=== PATIENT | male | born 1980 | race African-American/Black ===

== ENCOUNTER 2020-09-06 19:47 | Inpatient (IN) | payer MEDICAID, OTHER ==
[~2020-09-06] VITALS: Ht 180.3 cm; Wt 90.9 kg
[2020-09-06 21:27] LABS: BASOPHILS % 0.3 % (0.0-2.0); EOSINOPHILS % 0.1 % (0.0-5.0); HEMATOCRIT. 34.6 % (42.0-52.0); HEMOGLOBIN. 10.9 g/dL (14.0-18.0); LYMPHOCYTES % 11.1 % (20.0-50.0); MEAN CORPUSCULAR HEMOGLOBIN 24.1 pg (28.0-32.0); MEAN CORPUSCULAR VOLUME 76.8 fL (80.0-94.0); MEAN PLATELET VOLUME 7.9 fl (7.4-10.4); MONOCYTES % 5.6 % (2.0-8.0); NEUTROPHILS % 82.9 % (40.0-76.0); PLATELET 331 x1000/uL (130-400); RED BLOOD CELL COUNT 4.51 mill/uL (4.7-6.1); RED CELL DISTRIBUTION WIDTH 15.3 % (11.6-14.6)
[2020-09-06 21:34] LABS: CHLORIDE 91 mEq/L (98-107)
[2020-09-06] MEDS ORDERED: CEFTRIAXONE 1 G PREMIX 50 ML IV ONE (21:45)
[2020-09-06] MEDS ORDERED: SODIUM CHLORIDE 0.9% 1,000 ML IV ONE (21:45)
[2020-09-06] MEDS ORDERED: SODIUM CHLORIDE 0.9% 500 ML IV ONE (22:45)
[2020-09-07] MEDS ORDERED: SODIUM CHLORIDE 0.45% 1,000 ML IV SCH (13:00)
[2020-09-07] MEDS ORDERED: CLONIDINE 0.1MG TABLET PO PRN (13:00)
[2020-09-07] MEDS ORDERED: ONDANSETRON HCL 4MG/2ML INJ IV PRN (13:00)
[2020-09-07] MEDS ORDERED: VANCOMYCIN 1500MG in DEXTROSE 5% WATER 250ML IV SCH (14:00)
[2020-09-07] MEDS ORDERED: IOHEXOL-350 100 ML BOTTLE ONE (15:31)
[2020-09-07 17:15] VITALS: BP 138/84
[2020-09-07] MEDS: ENOXAPARIN 40MG/0.4ML SYR SUBCUT SCH (17:45)
[2020-09-07] MEDS: PIPERACILLIN/TAZOBACTAM 3.375 G in DEXT 5% WATER 100 ML IV SCH ×2 (17:46→21:21)
[2020-09-07] MEDS: HYDROCODONE/ACETAMINOPHEN 5/325MG TABLET PO PRN (17:48)
[2020-09-07] MEDS ORDERED: SODIUM CHLORIDE 0.9% 1,000 ML IV SCH (18:45)
[2020-09-07] MEDS ORDERED: SODIUM CHLORIDE 10% FOR INH 15ML VIAL NEB INH NR (19:30)
[2020-09-07 20:00] VITALS: BP 122/93
[2020-09-07 22:02] LABS: BG BASE EXCESS -9.6 mmol/L (-2.0-2.0); BG CARBOXYHEMOGLOBIN 1.5 % (0.5-1.5); BG DEOXYHEMOGLOBIN 9.3 % (0.0-5.0); BG FRACTION INSPIRED OXYGEN 36; BG HCO3 ACT 13.7 mmol/L (22.0-26.0); BG METHEMOGLOBIN 0.4 % (0.0-1.5); BG OXYGEN SATURATION 90.5 % (92.0-98.5); BG OXYHEMOGLOBIN 88.8 % (94.0-97.0); BG PCO2 23.3 mmHg (35.0-45.0); BG PH 7.387 (7.350-7.450); BG SAMPLE SITE RIGHT RADIAL; BG TOTAL HEMOGLOBIN 11.4 g/dL (12.0-18.0); BG VENT MODE NASAL CANNULA
[2020-09-07] MEDS: VANCOMYCIN 1250MG in DEXTROSE 5% WATER 250ML IV SCH (23:53)
[2020-09-08] VITALS: BP 119/90
[2020-09-08 02:08] LABS: HEPATITIS B SURFACE ANTIGEN NEGATIVE
[2020-09-08] MEDS: PIPERACILLIN/TAZOBACTAM 3.375 G in DEXT 5% WATER 100 ML IV SCH ×4 (03:27→21:13)
[2020-09-08] MEDS: HYDROCODONE/ACETAMINOPHEN 5/325MG TABLET PO PRN (03:31)
[2020-09-08 03:38] LABS: HEPATITIS A AB IGM Equiv (NEGATIVE)
[2020-09-08 04:00] VITALS: BP 131/92
[2020-09-08] MEDS: VANCOMYCIN 1250MG in DEXTROSE 5% WATER 250ML IV SCH ×3 (05:04→22:50)
[2020-09-08 08:00] VITALS: BP 114/87
[2020-09-08] MEDS: ASPIRIN 81MG EC TABLET PO SCH (08:29)
[2020-09-08] MEDS: ENOXAPARIN 40MG/0.4ML SYR SUBCUT SCH (08:30)
[2020-09-08] MEDS: GUAIFENESIN 200MG/10ML SUGAR FREE UDC PO PRN ×3 (08:44→16:49)
[2020-09-08] MEDS: SODIUM BICARBONATE 150 MEQ in DEXTROSE 5% WATER 1,000 ML IV SCH (09:39)
[2020-09-08 09:48] LABS: BG BASE EXCESS -9.4 mmol/L (-2.0-2.0); BG CARBOXYHEMOGLOBIN 1.1 % (0.5-1.5); BG DEOXYHEMOGLOBIN 17.5 % (0.0-5.0); BG FRACTION INSPIRED OXYGEN 21; BG HCO3 ACT 14.2 mmol/L (22.0-26.0); BG METHEMOGLOBIN 0.4 % (0.0-1.5); BG OXYGEN SATURATION 82.2 % (92.0-98.5); BG PCO2 24.8 mmHg (35.0-45.0); BG PH 7.375 (7.350-7.450); BG PO2 48.9 mmHg (75.0-100.0); BG SAMPLE SITE RIGHT BRACHIAL; BG TOTAL HEMOGLOBIN 11.8 g/dL (12.0-18.0); BG VENT MODE ROOM AIR
[2020-09-08 10:48] LABS: CLARITY URINE CLEAR (CLEAR); COLOR URINE DARK YELLOW (YELLOW); KETONES URINE NEGATIVE (NEGATIVE); LEUKOCYTE ESTERASE URINE NEGATIVE (NEGATIVE); NITRITE URINE NEGATIVE (NEGATIVE); OCCULT BLOOD URINE TRACE (NEGATIVE); PROTEIN URINE 1+ (NEGATIVE); SPECIFIC GRAVITY URINE 1.043 (1.005-1.030)
[2020-09-08 11:05] LABS: *AMPHETAMINES SCREEN URINE NEGATIVE (NEGATIVE); *BARBITURATES SCREEN URINE NEGATIVE (NEGATIVE)
[2020-09-08 11:06] LABS: *BENZODIAZEPINES SCREEN URINE NEGATIVE (NEGATIVE); *COCAINE SCREEN URINE NEGATIVE (NEGATIVE); CANNABINOID URINE SCREEN NEGATIVE (NEGATIVE); METHADONE URINE SCREEN NEGATIVE (NEGATIVE); OPIATES URINE SCREEN PRESUMTIVE POSITIVE (NEGATIVE); PHENCYCLIDINE URINE SCREEN NEGATIVE (NEGATIVE)
[2020-09-08 12:00] VITALS: BP 111/90
[2020-09-08 12:33] LABS: BASOPHILS % 0.1 % (0.0-2.0); EOSINOPHILS % 0.3 % (0.0-5.0); HEMATOCRIT. 37.3 % (42.0-52.0); HEMOGLOBIN. 11.1 g/dL (14.0-18.0); MEAN CORPUSCULAR HEMOGLOBIN 23.9 pg (28.0-32.0); MEAN CORPUSCULAR VOLUME 80.5 fL (80.0-94.0); MEAN PLATELET VOLUME 8.2 fl (7.4-10.4); NEUTROPHILS % 86.6 % (40.0-76.0); PLATELET 287 x1000/uL (130-400); RED BLOOD CELL COUNT 4.64 mill/uL (4.7-6.1); RED CELL DISTRIBUTION WIDTH 16.5 % (11.6-14.6)
[2020-09-08 12:37] LABS: CHLORIDE 89 mEq/L (98-107)
[2020-09-08 12:38] LABS: INR 2.5; PROTHROMBIN TIME 25.2 sec (9.6-11.0)
[2020-09-08 12:44] LABS: LDL CHOLESTEROL 33 mg/dL (5-100)
[2020-09-08 12:46] LABS: HDL CHOLESTEROL 15 mg/dL (40-59)
[2020-09-08 16:00] VITALS: BP 132/84
[2020-09-08] MEDS: DEXAMETHASONE 10 MG/ML VIAL IV SCH (16:48)
[2020-09-08] MEDS: FUROSEMIDE 40MG/4ML VIAL IVP SCH (16:48)
[2020-09-08 20:34] VITALS: BP 115/81
[2020-09-09 00:21] VITALS: BP 127/93
[2020-09-09 04:00] VITALS: BP 156/101
[2020-09-09] MEDS: VANCOMYCIN 1250MG in DEXTROSE 5% WATER 250ML IV SCH (05:13)
[2020-09-09] MEDS: PIPERACILLIN/TAZOBACTAM 3.375 G in DEXT 5% WATER 100 ML IV SCH ×4 (05:13→21:59)
[2020-09-09 05:14] LABS: HIV SCREEN 4G Non Reactive (Non Reactive)
[2020-09-09 08:00] VITALS: BP 117/83
[2020-09-09] MEDS: SODIUM BICARBONATE 150 MEQ in DEXTROSE 5% WATER 1,000 ML IV SCH (08:34)
[2020-09-09] MEDS: FUROSEMIDE 40MG/4ML VIAL IVP SCH (08:35)
[2020-09-09] MEDS: ASPIRIN 81MG EC TABLET PO SCH (08:35)
[2020-09-09] MEDS: DEXAMETHASONE 10 MG/ML VIAL IV SCH (08:35)
[2020-09-09] MEDS ORDERED: IPRATROPIUM/ALBUTEROL 0.5-3(2.5)MG/3ML NEB HHN PRN (10:30)
[2020-09-09 12:00] VITALS: BP 150/70
[2020-09-09 15:27] VITALS: BP 98/74
[2020-09-09] MEDS: GUAIFENESIN 200MG/10ML SUGAR FREE UDC PO PRN (16:06)
[2020-09-09] MEDS: ACETAMINOPHEN 325MG TABLET PO PRN (16:07)
[2020-09-09 20:38] VITALS: BP 104/70
[2020-09-09] MEDS: IPRATROPIUM/ALBUTEROL 0.5-3(2.5)MG/3ML NEB HHN SCH (21:42)
[2020-09-10] VITALS: BP 98/55
[2020-09-10] MEDS: IPRATROPIUM/ALBUTEROL 0.5-3(2.5)MG/3ML NEB HHN SCH ×4 (02:42→21:04)
[2020-09-10 04:00] VITALS: BP 130/67
[2020-09-10] MEDS: SODIUM BICARBONATE 150 MEQ in DEXTROSE 5% WATER 1,000 ML IV SCH (07:01)
[2020-09-10] MEDS: PIPERACILLIN/TAZOBACTAM 3.375 G in DEXT 5% WATER 100 ML IV SCH ×4 (07:01→22:16)
[2020-09-10 07:46] LABS: CHLORIDE 88 mEq/L (98-107)
[2020-09-10 08:00] VITALS: BP 98/71
[2020-09-10 08:59] LABS: INR 1.6; PROTHROMBIN TIME 16.2 sec (9.6-11.0)
[2020-09-10] MEDS: FUROSEMIDE 40MG/4ML VIAL IVP SCH (09:10)
[2020-09-10] MEDS: HYDROCODONE/ACETAMINOPHEN 5/325MG TABLET PO PRN (09:11)
[2020-09-10] MEDS: ASPIRIN 81MG EC TABLET PO SCH (09:11)
[2020-09-10 12:00] VITALS: BP 103/67
[2020-09-10 16:00] VITALS: BP 103/81
[2020-09-10] MEDS ORDERED: VANCOMYCIN 1 G PREMIX 200 ML IV NR (20:00)
[2020-09-10 21:42] VITALS: BP 107/80
[2020-09-11] MEDS: IPRATROPIUM/ALBUTEROL 0.5-3(2.5)MG/3ML NEB HHN SCH ×4 (02:14→21:18)
[2020-09-11] MEDS: HYDROCODONE/ACETAMINOPHEN 5/325MG TABLET PO PRN (02:31)
[2020-09-11] MEDS: GUAIFENESIN 200MG/10ML SUGAR FREE UDC PO PRN ×3 (02:31→21:49)
[2020-09-11] MEDS: PIPERACILLIN/TAZOBACTAM 3.375 G in DEXT 5% WATER 100 ML IV SCH ×5 (05:54→20:53)
[2020-09-11 07:29] LABS: CHLORIDE 89 mEq/L (98-107)
[2020-09-11 08:00] VITALS: BP 118/92
[2020-09-11] MEDS: FUROSEMIDE 40MG/4ML VIAL IVP SCH ×2 (08:34→09:00)
[2020-09-11] MEDS: ASPIRIN 81MG EC TABLET PO SCH (08:34)
[2020-09-11 09:38] LABS: BG BASE EXCESS 1.3 mmol/L (-2.0-2.0); BG CARBOXYHEMOGLOBIN 0.9 % (0.5-1.5); BG DEOXYHEMOGLOBIN 1.7 % (0.0-5.0); BG HCO3 ACT 24.4 mmol/L (22.0-26.0); BG METHEMOGLOBIN 0.4 % (0.0-1.5); BG OXYGEN SATURATION 98.3 % (92.0-98.5); BG PCO2 33.8 mmHg (35.0-45.0); BG PH 7.476 (7.350-7.450); BG PO2 101.9 mmHg (75.0-100.0); BG SAMPLE SITE LEFT RADIAL; BG TOTAL HEMOGLOBIN 12.5 g/dL (12.0-18.0); BG VENT MODE MASK - SIMPLE
[2020-09-11 12:00] VITALS: BP 121/84
[2020-09-11] MEDS: FUROSEMIDE 40MG TABLET PO SCH (12:18)
[2020-09-11 13:54] LABS: BASOPHILS % 0.3 % (0.0-2.0); EOSINOPHILS % 0.1 % (0.0-5.0); HEMOGLOBIN. 11.7 g/dL (14.0-18.0); LYMPHOCYTES % 10.8 % (20.0-50.0); MONOCYTES % 4.2 % (2.0-8.0); NEUTROPHILS % 84.6 % (40.0-76.0); PLATELET 197 x1000/uL (130-400); RED BLOOD CELL COUNT 4.87 mill/uL (4.7-6.1); RED CELL DISTRIBUTION WIDTH 16.1 % (11.6-14.6)
[2020-09-11 13:55] LABS: MEAN CORPUSCULAR VOLUME 77.9 fL (80.0-94.0)
[2020-09-11 16:00] VITALS: BP 104/79
[2020-09-11 20:00] VITALS: BP 97/70
[2020-09-12] VITALS: BP 109/76
[2020-09-12] MEDS: IPRATROPIUM/ALBUTEROL 0.5-3(2.5)MG/3ML NEB HHN SCH ×4 (02:37→21:00)
[2020-09-12] MEDS: PIPERACILLIN/TAZOBACTAM 3.375 G in DEXT 5% WATER 100 ML IV SCH ×2 (02:44→09:00)
[2020-09-12 04:00] VITALS: BP 106/70
[2020-09-12 08:00] VITALS: BP 110/82
[2020-09-12 09:05] LABS: CHLORIDE 87 mEq/L (98-107)
[2020-09-12] MEDS: ASPIRIN 81MG EC TABLET PO SCH (09:37)
[2020-09-12] MEDS: FUROSEMIDE 40MG TABLET PO SCH (09:38)
[2020-09-12 10:28] LABS: BG BASE EXCESS -2.4 mmol/L (-2.0-2.0); BG CARBOXYHEMOGLOBIN 0.7 % (0.5-1.5); BG FRACTION INSPIRED OXYGEN 60; BG HCO3 ACT 20.3 mmol/L (22.0-26.0); BG OXYHEMOGLOBIN 97.3 % (94.0-97.0); BG PCO2 28.9 mmHg (35.0-45.0); BG PH 7.464 (7.350-7.450); BG PO2 107.8 mmHg (75.0-100.0); BG SAMPLE SITE RIGHT RADIAL; BG VENT MODE MASK - SIMPLE
[2020-09-12 11:25] LABS: INR 1.6; PROTHROMBIN TIME 16.7 sec (9.6-11.0)
[2020-09-12 12:00] VITALS: BP 125/76
[2020-09-12] MEDS ORDERED: SODIUM POLYSTYRENE SULFONATE 15 G/60 ML BOT PO NR (12:00)
[2020-09-12 16:00] VITALS: BP 104/71
[2020-09-12 20:00] VITALS: BP 100/68
[2020-09-13] VITALS: BP 106/73
[2020-09-13] MEDS: IPRATROPIUM/ALBUTEROL 0.5-3(2.5)MG/3ML NEB HHN SCH ×4 (01:13→20:53)
[2020-09-13 04:00] VITALS: BP 114/82
[2020-09-13 05:45] LABS: CHLORIDE 84 mEq/L (98-107)
[2020-09-13 07:03] LABS: BASOPHILS % 0.3 % (0.0-2.0); EOSINOPHILS % 0.1 % (0.0-5.0); HEMOGLOBIN. 10.8 g/dL (14.0-18.0); LYMPHOCYTES % 10.9 % (20.0-50.0); MEAN CORPUSCULAR HEMOGLOBIN 23.4 pg (28.0-32.0); MEAN CORPUSCULAR VOLUME 78.2 fL (80.0-94.0); MEAN PLATELET VOLUME 8.6 fl (7.4-10.4); MONOCYTES % 6.7 % (2.0-8.0); PLATELET 167 x1000/uL (130-400); RED BLOOD CELL COUNT 4.61 mill/uL (4.7-6.1); RED CELL DISTRIBUTION WIDTH 16.2 % (11.6-14.6)
[2020-09-13 08:00] VITALS: BP 115/85
[2020-09-13] MEDS: ASPIRIN 81MG EC TABLET PO SCH (08:54)
[2020-09-13] MEDS: FUROSEMIDE 40MG TABLET PO SCH (08:54)
[2020-09-13] MEDS: GUAIFENESIN 200MG/10ML SUGAR FREE UDC PO PRN (08:54)
[2020-09-13 12:00] VITALS: BP 108/84
[2020-09-13 16:00] VITALS: BP 121/85
[2020-09-13 20:00] VITALS: BP 110/73
[2020-09-13] MEDS: ACETAMINOPHEN 325MG TABLET PO PRN (20:15)
[2020-09-14] VITALS (7 sets, daily range): BP systolic 90–118; BP diastolic 64–90
[2020-09-14] MEDS: IPRATROPIUM/ALBUTEROL 0.5-3(2.5)MG/3ML NEB HHN SCH ×4 (01:55→21:06)
[2020-09-14] MEDS: FUROSEMIDE 40MG TABLET PO SCH (09:07)
[2020-09-14] MEDS: ASPIRIN 81MG EC TABLET PO SCH (09:07)
[2020-09-14] MEDS: CEFEPIME 2,000 MG in DEXT 5% WATER 100 ML IV SCH ×2 (20:36→21:52)
[2020-09-15] VITALS: BP 108/66
[2020-09-15] MEDS: IPRATROPIUM/ALBUTEROL 0.5-3(2.5)MG/3ML NEB HHN SCH ×4 (02:47→20:51)
[2020-09-15 04:00] VITALS: BP 104/78
[2020-09-15] MEDS: ACETAMINOPHEN 325MG TABLET PO PRN (06:15)
[2020-09-15] MEDS: CEFEPIME 2,000 MG in DEXT 5% WATER 100 ML IV SCH ×2 (06:15→18:10)
[2020-09-15 06:46] LABS: CHLORIDE 89 mEq/L (98-107)
[2020-09-15 06:49] LABS: BASOPHILS % 0.2 % (0.0-2.0); EOSINOPHILS % 0.2 % (0.0-5.0); HEMATOCRIT. 34.8 % (42.0-52.0); HEMOGLOBIN. 10.6 g/dL (14.0-18.0); LYMPHOCYTES % 9.8 % (20.0-50.0); MEAN CORPUSCULAR HEMOGLOBIN 23.5 pg (28.0-32.0); MEAN CORPUSCULAR VOLUME 77.4 fL (80.0-94.0); MEAN PLATELET VOLUME 8.7 fl (7.4-10.4); MONOCYTES % 7.2 % (2.0-8.0); NEUTROPHILS % 82.6 % (40.0-76.0); PLATELET 137 x1000/uL (130-400); RED CELL DISTRIBUTION WIDTH 16.9 % (11.6-14.6)
[2020-09-15 08:00] VITALS: BP 128/77
[2020-09-15] MEDS: FUROSEMIDE 40MG TABLET PO SCH (09:10)
[2020-09-15] MEDS: ASPIRIN 81MG EC TABLET PO SCH (09:10)
[2020-09-15 12:00] VITALS: BP 106/73
[2020-09-15 16:00] VITALS: BP 101/75
[2020-09-15 20:00] VITALS: BP 102/70
[2020-09-16] VITALS: BP 106/65
[2020-09-16] MEDS: IPRATROPIUM/ALBUTEROL 0.5-3(2.5)MG/3ML NEB HHN SCH ×4 (02:23→21:05)
[2020-09-16] MEDS: CEFEPIME 2,000 MG in DEXT 5% WATER 100 ML IV SCH ×2 (06:21→18:27)
[2020-09-16 08:00] VITALS: BP 114/77
[2020-09-16] MEDS: FUROSEMIDE 40MG TABLET PO SCH (09:10)
[2020-09-16] MEDS: ASPIRIN 81MG EC TABLET PO SCH (09:10)
[2020-09-16 12:00] VITALS: BP 97/65
[2020-09-16 16:00] VITALS: BP 108/77
[2020-09-16] MEDS ORDERED: FUROSEMIDE 40MG/4ML VIAL IVP NR (16:26)
[2020-09-16 17:47] LABS: BG CARBOXYHEMOGLOBIN 1.3 % (0.5-1.5); BG DEOXYHEMOGLOBIN 9.8 % (0.0-5.0); BG FRACTION INSPIRED OXYGEN 21; BG HCO3 ACT 22.8 mmol/L (22.0-26.0); BG METHEMOGLOBIN 0.4 % (0.0-1.5); BG OXYHEMOGLOBIN 88.5 % (94.0-97.0); BG PH 7.484 (7.350-7.450); BG PO2 55.2 mmHg (75.0-100.0); BG SAMPLE SITE RIGHT RADIAL; BG TOTAL HEMOGLOBIN 11.3 g/dL (12.0-18.0); BG VENT MODE ROOM AIR
[2020-09-16 20:00] VITALS: BP 101/68
[2020-09-17] VITALS: BP 121/58
[2020-09-17] MEDS: IPRATROPIUM/ALBUTEROL 0.5-3(2.5)MG/3ML NEB HHN SCH ×4 (01:08→20:45)
[2020-09-17 04:00] VITALS: BP 121/85
[2020-09-17] MEDS: CEFEPIME 2,000 MG in DEXT 5% WATER 100 ML IV SCH ×2 (06:30→18:30)
[2020-09-17 08:00] VITALS: BP 113/79
[2020-09-17] MEDS: ASPIRIN 81MG EC TABLET PO SCH (09:15)
[2020-09-17] MEDS: FUROSEMIDE 40MG TABLET PO SCH (09:15)
[2020-09-17 12:00] VITALS: BP 120/76
[2020-09-17] MEDS: ACETAMINOPHEN 325MG TABLET PO PRN (13:05)
[2020-09-17 16:00] VITALS: BP 96/76
[2020-09-17 20:00] VITALS: BP 113/82
[2020-09-17] MEDS: QUETIAPINE FUMARATE 25MG TABLET PO SCH (21:54)
[2020-09-17] MEDS: GUAIFENESIN 200MG/10ML SUGAR FREE UDC PO PRN (22:17)
[2020-09-18] VITALS: BP 109/70
[2020-09-18] MEDS: IPRATROPIUM/ALBUTEROL 0.5-3(2.5)MG/3ML NEB HHN SCH ×4 (01:06→20:56)
[2020-09-18 04:00] VITALS: BP 95/72
[2020-09-18] MEDS: CEFEPIME 2,000 MG in DEXT 5% WATER 100 ML IV SCH (06:23)
[2020-09-18 08:00] VITALS: BP 119/57
[2020-09-18] MEDS: ASPIRIN 81MG EC TABLET PO SCH (09:15)
[2020-09-18] MEDS: FUROSEMIDE 40MG TABLET PO SCH (09:15)
[2020-09-18] MEDS: QUETIAPINE FUMARATE 25MG TABLET PO SCH ×2 (09:15→21:24)
[2020-09-18 12:00] VITALS: BP 100/51
[2020-09-18 16:00] VITALS: BP 102/81
[2020-09-18 20:00] VITALS: BP 90/46
[2020-09-19] VITALS (7 sets, daily range): BP systolic 84–114; BP diastolic 54–67
[2020-09-19] MEDS: IPRATROPIUM/ALBUTEROL 0.5-3(2.5)MG/3ML NEB HHN SCH ×4 (02:38→20:42)
[2020-09-19] MEDS: CEFEPIME 2,000 MG in DEXT 5% WATER 100 ML IV SCH (06:29)
[2020-09-19] MEDS: QUETIAPINE FUMARATE 25MG TABLET PO SCH ×2 (08:54→21:37)
[2020-09-19] MEDS: ASPIRIN 81MG EC TABLET PO SCH (08:54)
[2020-09-19] MEDS: FUROSEMIDE 40MG TABLET PO SCH (09:00)
[2020-09-20] VITALS: BP 80/60
[2020-09-20] MEDS: IPRATROPIUM/ALBUTEROL 0.5-3(2.5)MG/3ML NEB HHN SCH ×4 (01:16→21:30)
[2020-09-20 04:00] VITALS: BP 88/62
[2020-09-20] MEDS: ASPIRIN 81MG EC TABLET PO SCH (09:00)
[2020-09-20] MEDS: QUETIAPINE FUMARATE 25MG TABLET PO SCH ×2 (09:00→21:24)
[2020-09-20] MEDS: FUROSEMIDE 40MG TABLET PO SCH (09:00)
[2020-09-20] MEDS: MIDODRINE HCL 2.5MG TABLET PO SCH ×3 (10:26→17:26)
[2020-09-20 11:09] LABS: BG BASE EXCESS 2.9 mmol/L (-2.0-2.0); BG CARBOXYHEMOGLOBIN 1.7 % (0.5-1.5); BG DEOXYHEMOGLOBIN 8.7 % (0.0-5.0); BG HCO3 ACT 25.7 mmol/L (22.0-26.0); BG METHEMOGLOBIN 0.4 % (0.0-1.5); BG OXYGEN SATURATION 91.1 % (92.0-98.5); BG OXYHEMOGLOBIN 89.2 % (94.0-97.0); BG PCO2 32.9 mmHg (35.0-45.0); BG PH 7.511 (7.350-7.450); BG PO2 55.6 mmHg (75.0-100.0); BG SAMPLE SITE RIGHT RADIAL; BG TOTAL HEMOGLOBIN 10.1 g/dL (12.0-18.0); BG VENT MODE ROOM AIR
[2020-09-20] MEDS: CEFTRIAXONE SODIUM 1 G/VIAL IM SCH (17:25)
[2020-09-20 20:00] VITALS: BP 98/61
[2020-09-21] VITALS: BP 95/60
[2020-09-21] MEDS: IPRATROPIUM/ALBUTEROL 0.5-3(2.5)MG/3ML NEB HHN SCH ×4 (02:35→21:00)
[2020-09-21 04:00] VITALS: BP_SYST 134; BP_SYST 92; BP_DIAS 43; BP_DIAS 64
[2020-09-21 08:00] VITALS: BP 92/65
[2020-09-21] MEDS: ASPIRIN 81MG EC TABLET PO SCH (08:29)
[2020-09-21] MEDS: QUETIAPINE FUMARATE 25MG TABLET PO SCH ×2 (08:29→21:31)
[2020-09-21] MEDS: FUROSEMIDE 40MG TABLET PO SCH (08:29)
[2020-09-21] MEDS: CEFTRIAXONE SODIUM 1 G/VIAL IM SCH (08:29)
[2020-09-21] MEDS: MIDODRINE HCL 2.5MG TABLET PO SCH ×3 (08:30→16:52)
[2020-09-21] MEDS: CEFEPIME 2,000 MG in DEXT 5% WATER 100 ML IV SCH ×3 (11:40→21:31)
[2020-09-21 12:00] VITALS: BP 85/59
[2020-09-21 16:00] VITALS: BP 100/60
[2020-09-21 20:00] VITALS: BP_SYST 139; BP_SYST 94; BP_DIAS 57; BP_DIAS 67
[2020-09-22] VITALS: BP 99/61
[2020-09-22] MEDS: IPRATROPIUM/ALBUTEROL 0.5-3(2.5)MG/3ML NEB HHN SCH ×4 (01:03→20:38)
[2020-09-22 04:00] VITALS: BP 93/65
[2020-09-22 08:00] VITALS: BP 97/60
[2020-09-22] MEDS: MIDODRINE HCL 2.5MG TABLET PO SCH (09:42)
[2020-09-22] MEDS: ASPIRIN 81MG EC TABLET PO SCH (09:42)
[2020-09-22] MEDS: QUETIAPINE FUMARATE 25MG TABLET PO SCH ×2 (09:42→21:43)
[2020-09-22] MEDS: CEFEPIME 2,000 MG in DEXT 5% WATER 100 ML IV SCH ×2 (09:42→21:43)
[2020-09-22] MEDS: FUROSEMIDE 40MG TABLET PO SCH (09:42)
[2020-09-22 12:00] VITALS: BP 92/58
[2020-09-22] MEDS: MIDODRINE HCL 5MG TABLET PO SCH ×2 (13:50→18:37)
[2020-09-22 16:20] VITALS: BP 97/66
[2020-09-22 20:00] VITALS: BP 95/65
[2020-09-23] MEDS: IPRATROPIUM/ALBUTEROL 0.5-3(2.5)MG/3ML NEB HHN SCH ×4 (03:10→20:51)
[2020-09-23 04:00] VITALS: BP 101/70
[2020-09-23] MEDS: CEFEPIME 2,000 MG in DEXT 5% WATER 100 ML IV SCH ×2 (09:00→21:01)
[2020-09-23] MEDS: FUROSEMIDE 40MG TABLET PO SCH (09:00)
[2020-09-23] MEDS: QUETIAPINE FUMARATE 25MG TABLET PO SCH ×2 (09:13→21:01)
[2020-09-23] MEDS: ASPIRIN 81MG EC TABLET PO SCH (09:13)
[2020-09-23] MEDS: MIDODRINE HCL 5MG TABLET PO SCH ×3 (09:53→17:49)
[2020-09-23 20:00] VITALS: BP 96/63
[2020-09-24] VITALS: BP 92/67
[2020-09-24] MEDS: IPRATROPIUM/ALBUTEROL 0.5-3(2.5)MG/3ML NEB HHN SCH ×4 (01:20→21:30)
[2020-09-24 04:00] VITALS: BP 115/68
[2020-09-24] MEDS: FUROSEMIDE 40MG TABLET PO SCH (08:51)
[2020-09-24] MEDS: QUETIAPINE FUMARATE 25MG TABLET PO SCH ×2 (08:51→20:30)
[2020-09-24] MEDS: ASPIRIN 81MG EC TABLET PO SCH (08:51)
[2020-09-24] MEDS: MIDODRINE HCL 5MG TABLET PO SCH ×3 (08:52→17:43)
[2020-09-24] MEDS ORDERED: LIDOCAINE HCL 1% 20ML VIAL (Pyxis) INJ ONE (12:19)
[2020-09-24] MEDS: CEFEPIME 2,000 MG in DEXT 5% WATER 100 ML IV SCH ×2 (13:29→20:30)
[2020-09-24 20:00] VITALS: BP 96/64
[2020-09-25] VITALS: BP 92/62
[2020-09-25] MEDS: IPRATROPIUM/ALBUTEROL 0.5-3(2.5)MG/3ML NEB HHN SCH ×4 (01:11→19:44)
[2020-09-25 04:00] VITALS: BP 94/62
[2020-09-25] MEDS: CEFEPIME 2,000 MG in DEXT 5% WATER 100 ML IV SCH ×2 (09:28→20:20)
[2020-09-25] MEDS: MIDODRINE HCL 5MG TABLET PO SCH ×3 (09:28→18:04)
[2020-09-25] MEDS: FUROSEMIDE 40MG TABLET PO SCH (09:29)
[2020-09-25] MEDS: QUETIAPINE FUMARATE 25MG TABLET PO SCH ×2 (09:29→20:20)
[2020-09-25] MEDS: ASPIRIN 81MG EC TABLET PO SCH (09:29)
[2020-09-25 20:00] VITALS: BP 94/63
[2020-09-26] VITALS: BP 96/60
[2020-09-26] MEDS: IPRATROPIUM/ALBUTEROL 0.5-3(2.5)MG/3ML NEB HHN SCH ×4 (01:00→18:33)
[2020-09-26 04:00] VITALS: BP 95/65
[2020-09-26 08:00] VITALS: BP 86/50
[2020-09-26] MEDS: ASPIRIN 81MG EC TABLET PO SCH (09:40)
[2020-09-26] MEDS: QUETIAPINE FUMARATE 25MG TABLET PO SCH ×2 (09:40→22:36)
[2020-09-26] MEDS: MIDODRINE HCL 5MG TABLET PO SCH ×3 (09:40→17:16)
[2020-09-26] MEDS: FUROSEMIDE 40MG TABLET PO SCH (09:40)
[2020-09-26 12:00] VITALS: BP 88/58
[2020-09-26 16:00] VITALS: BP 87/59
[2020-09-27] MEDS: IPRATROPIUM/ALBUTEROL 0.5-3(2.5)MG/3ML NEB HHN SCH (02:55)
[2020-09-27 04:00] VITALS: BP 94/51
[2020-09-27 08:00] VITALS: BP 89/64
[2020-09-27] MEDS: FUROSEMIDE 40MG TABLET PO SCH (08:51)
[2020-09-27] MEDS: ASPIRIN 81MG EC TABLET PO SCH (08:51)
[2020-09-27] MEDS: QUETIAPINE FUMARATE 25MG TABLET PO SCH ×2 (08:51→22:14)
[2020-09-27] MEDS: MIDODRINE HCL 5MG TABLET PO SCH ×3 (08:51→17:23)
[2020-09-27] MEDS: ACETAMINOPHEN 325MG TABLET PO PRN ×2 (11:10→17:23)
[2020-09-27 12:00] VITALS: BP 92/65
[2020-09-27 16:00] VITALS: BP 85/61
[2020-09-27 20:00] VITALS: BP 89/56
[2020-09-28] VITALS: BP 101/59
[2020-09-28] MEDS: IPRATROPIUM/ALBUTEROL 0.5-3(2.5)MG/3ML NEB HHN SCH ×4 (00:14→21:06)
[2020-09-28] MEDS: NYSTATIN POWDER 15GM TOP SCH ×3 (03:42→21:36)
[2020-09-28] MEDS: ACETAMINOPHEN 325MG TABLET PO PRN (03:42)
[2020-09-28 04:00] VITALS: BP 99/58
[2020-09-28 08:00] VITALS: BP 86/51
[2020-09-28 08:23] LABS: HEMATOCRIT 28.1 % (42.0-52.0); HEMOGLOBIN 8.8 g/dL (14.0-18.0); MEAN CORPUSCULAR HEMOGLOBIN 24.1 pg (28.0-32.0); MEAN CORPUSCULAR VOLUME 76.7 fL (80.0-94.0); PLATELET 67 x1000/uL (130-400); RED BLOOD CELL COUNT 3.67 mill/uL (4.7-6.1)
[2020-09-28 08:24] LABS: CHLORIDE 89 mEq/L (98-107)
[2020-09-28] MEDS: FUROSEMIDE 40MG TABLET PO SCH (10:08)
[2020-09-28] MEDS: QUETIAPINE FUMARATE 25MG TABLET PO SCH ×2 (10:09→21:35)
[2020-09-28] MEDS: MIDODRINE HCL 5MG TABLET PO SCH ×3 (10:09→16:45)
[2020-09-28] MEDS: ASPIRIN 81MG EC TABLET PO SCH (10:09)
[2020-09-28] MEDS ORDERED: DEXTROSE 50% WATER 50ML SYRINGE IV NR (10:40)
[2020-09-28 12:00] VITALS: BP 125/106
[2020-09-28] MEDS ORDERED: DEXT 5%/0.9% NACL 1,000 ML IV SCH (12:06)
[2020-09-28 16:00] VITALS: BP 95/41
[2020-09-28] MEDS: DEXTROSE 50% WATER 50ML SYRINGE IV PRN ×2 (17:35→21:46)
[2020-09-28 20:00] VITALS: BP 88/51
[2020-09-28] MEDS: DEXT 10% WATER 1,000 ML IV SCH (21:35)
[2020-09-29] VITALS: BP 94/55
[2020-09-29] MEDS: IPRATROPIUM/ALBUTEROL 0.5-3(2.5)MG/3ML NEB HHN SCH ×5 (02:43→21:37)
[2020-09-29 04:00] VITALS: BP 87/48
[2020-09-29] MEDS: DEXT 10% WATER 1,000 ML IV SCH ×2 (05:35→18:14)
[2020-09-29] MEDS: DEXTROSE 50% WATER 50ML SYRINGE IV PRN ×2 (06:43→20:38)
[2020-09-29 08:00] VITALS: BP 86/63
[2020-09-29] MEDS: ASPIRIN 81MG EC TABLET PO SCH (09:54)
[2020-09-29] MEDS: FUROSEMIDE 40MG TABLET PO SCH (09:54)
[2020-09-29] MEDS: MIDODRINE HCL 5MG TABLET PO SCH ×3 (09:54→17:00)
[2020-09-29] MEDS: QUETIAPINE FUMARATE 25MG TABLET PO SCH ×2 (09:54→20:13)
[2020-09-29] MEDS: NYSTATIN POWDER 15GM TOP SCH ×2 (09:55→20:14)
[2020-09-29 12:00] VITALS: BP 80/50
[2020-09-29 16:00] VITALS: BP 86/64
[2020-09-29 20:00] VITALS: BP 96/62
[2020-09-29] MEDS: BLOOD SUGAR DIAGNOSTIC STRIP TEST SCH (21:00)
[2020-09-30] MEDS: IPRATROPIUM/ALBUTEROL 0.5-3(2.5)MG/3ML NEB HHN SCH ×4 (01:22→21:09)
[2020-09-30 04:00] VITALS: BP 92/61
[2020-09-30] MEDS: DEXT 10% WATER 1,000 ML IV SCH ×3 (04:07→22:55)
[2020-09-30] MEDS: BLOOD SUGAR DIAGNOSTIC STRIP TEST SCH ×4 (07:20→20:26)
[2020-09-30 08:00] VITALS: BP 101/63
[2020-09-30] MEDS: NYSTATIN POWDER 15GM TOP SCH ×2 (09:00→20:23)
[2020-09-30] MEDS: ASPIRIN 81MG EC TABLET PO SCH (10:15)
[2020-09-30] MEDS: MIDODRINE HCL 5MG TABLET PO SCH ×3 (10:15→17:59)
[2020-09-30] MEDS: QUETIAPINE FUMARATE 25MG TABLET PO SCH ×2 (10:15→20:23)
[2020-09-30] MEDS: DOCUSATE SODIUM 100MG CAPSULE PO PRN ×2 (10:15→17:58)
[2020-09-30 12:00] VITALS: BP 115/50
[2020-09-30 16:00] VITALS: BP 104/53
[2020-09-30] MEDS: DEXTROSE 50% WATER 50ML SYRINGE IV PRN (17:42)
[2020-09-30 20:00] VITALS: BP 97/60
[2020-10-01] VITALS (43 sets, daily range): BP systolic 60–123; BP diastolic 28–90
[2020-10-01] MEDS: ACETAMINOPHEN 325MG TABLET PO PRN (03:35)
[2020-10-01] MEDS: BLOOD SUGAR DIAGNOSTIC STRIP TEST SCH ×5 (06:22→23:29)
[2020-10-01] MEDS: DEXTROSE 50% WATER 50ML SYRINGE IV PRN (06:24)
[2020-10-01 07:10] LABS: BASOPHILS % 0.4 % (0.0-2.0); EOSINOPHILS % 0.6 % (0.0-5.0); HEMATOCRIT. 27.1 % (42.0-52.0); HEMOGLOBIN. 8.6 g/dL (14.0-18.0); LYMPHOCYTES % 18.5 % (20.0-50.0); MEAN CORPUSCULAR HEMOGLOBIN 24.3 pg (28.0-32.0); MEAN CORPUSCULAR VOLUME 76.6 fL (80.0-94.0); MONOCYTES % 2.9 % (2.0-8.0); NEUTROPHILS % 77.6 % (40.0-76.0); RED BLOOD CELL COUNT 3.54 mill/uL (4.7-6.1); RED CELL DISTRIBUTION WIDTH 19.8 % (11.6-14.6)
[2020-10-01 07:52] LABS: CHLORIDE 87 mEq/L (98-107)
[2020-10-01] MEDS ORDERED: SODIUM CHLORIDE 0.9% 10ML VIAL ONE (07:55)
[2020-10-01] MEDS ORDERED: ETOMIDATE 2MG/ML 10ML VIAL IV ONE (07:55)
[2020-10-01] MEDS ORDERED: VECURONIUM BROMIDE 10 MG/VIAL IV ONE (07:55)
[2020-10-01] MEDS: IPRATROPIUM/ALBUTEROL 0.5-3(2.5)MG/3ML NEB HHN SCH ×2 (09:06→20:36)
[2020-10-01] MEDS: DOCUSATE SODIUM 100MG CAPSULE PO PRN (09:13)
[2020-10-01] MEDS: QUETIAPINE FUMARATE 25MG TABLET PO SCH (09:13)
[2020-10-01] MEDS: MIDODRINE HCL 5MG TABLET PO SCH ×2 (09:13→17:34)
[2020-10-01] MEDS: ASPIRIN 81MG EC TABLET PO SCH (09:13)
[2020-10-01] MEDS: NYSTATIN POWDER 15GM TOP SCH ×2 (09:14→23:20)
[2020-10-01 09:49] LABS: PLATELET ESTIMATE MARKEDLY DECREASED
[2020-10-01 09:51] LABS: PLATELET 37 x1000/uL (130-400)
[2020-10-01] MEDS ORDERED: PROPOFOL 10MG/ML 100ML 100 ML IV PRN (13:30)
[2020-10-01] MEDS ORDERED: DOPAMINE IV ONE (13:40)
[2020-10-01] MEDS ORDERED: DEXT 5% IV ONE (13:40)
[2020-10-01] MEDS ORDERED: PHENYLEPHRINE 100 MG in DEXT 5% WATER 240 ML IV PRN (13:45)
[2020-10-01] MEDS ORDERED: VECURONIUM BROMIDE 50 MG in DEXTROSE 5% WATER 50 ML IV PRN (13:45)
[2020-10-01] MEDS ORDERED: MEPERIDINE HCL/PF 25MG/ML CPJ IV PRN (13:45)
[2020-10-01] MEDS ORDERED: FENTANYL CITRATE/PF 1,000 MCG in SODIUM CHLORIDE 0.9% 80 ML IV PRN (13:45)
[2020-10-01] MEDS ORDERED: CALCIUM GLUCONATE 2,000 MG in DEXT 5% WATER 80 ML IV PRN (13:45)
[2020-10-01] MEDS ORDERED: SODIUM CHLORIDE 0.9% 250 ML IV PRN (13:45)
[2020-10-01] MEDS ORDERED: EPINEPHRINE 10 MG in SODIUM CHLORIDE 0.9% 240 ML IV PRN (13:45)
[2020-10-01] MEDS ORDERED: DOPAMINE 800MG/500ML PREMIX 500 ML IV PRN (13:45)
[2020-10-01] MEDS ORDERED: BUSPIRONE HCL 10MG TABLET NG PRN (13:45)
[2020-10-01] MEDS ORDERED: SODIUM CHLORIDE 0.9% 1,000 ML IV ONE (13:45)
[2020-10-01] MEDS ORDERED: MAGNESIUM 2 G PREMIX 50 ML IV PRN (13:45)
[2020-10-01] MEDS ORDERED: ALBUMIN HUMAN 12.5G/250ML (5%) IV NR (14:00)
[2020-10-01] MEDS ORDERED: FENTANYL CITRATE 2,500 MCG in SODIUM CHLORIDE 0.9% 200 ML IV PRN (14:30)
[2020-10-01] MEDS ORDERED: KCL 20MEQ/100ML PREMIX 100 ML IV PRN (15:00)
[2020-10-01 15:25] LABS: BG BASE EXCESS -9.3 mmol/L (-2.0-2.0); BG CARBOXYHEMOGLOBIN 1.4 % (0.5-1.5); BG DEOXYHEMOGLOBIN 7.4 % (0.0-5.0); BG FRACTION INSPIRED OXYGEN 100; BG HCO3 ACT 20.2 mmol/L (22.0-26.0); BG METHEMOGLOBIN 0.6 % (0.0-1.5); BG OXYGEN SATURATION 92.4 % (92.0-98.5); BG OXYHEMOGLOBIN 90.6 % (94.0-97.0); BG PCO2 62.4 mmHg (35.0-45.0); BG PH 7.127 (7.350-7.450); BG PO2 84.5 mmHg (75.0-100.0); BG SAMPLE SITE RIGHT FEMORAL; BG TOTAL HEMOGLOBIN 10.7 g/dL (12.0-18.0); BG TOTAL RESPIRATORY RATE 18 b/min; BG VENT MODE VENT - AC
[2020-10-01] MEDS ORDERED: PANTOPRAZOLE SODIUM 40 MG/VIAL IV SCH (16:00)
[2020-10-01] MEDS: NOREPINEPHRINE 32 MG in DEXT 5% WATER 218 ML IV PRN ×2 (17:26→23:20)
[2020-10-01 17:35] LABS: HEMATOCRIT 29.6 % (42.0-52.0); HEMOGLOBIN 9.1 g/dL (14.0-18.0); MEAN CORPUSCULAR HEMOGLOBIN 23.7 pg (28.0-32.0); MEAN CORPUSCULAR VOLUME 77.3 fL (80.0-94.0); RED BLOOD CELL COUNT 3.83 mill/uL (4.7-6.1)
[2020-10-01 17:41] LABS: CHLORIDE 83 mEq/L (98-107)
[2020-10-01 17:43] LABS: PLATELET 24 x1000/uL (130-400)
[2020-10-01 17:44] LABS: PARTIAL THROMBOPLASTIN TIME 51.5 sec (23.4-31.0); PROTHROMBIN TIME 20.4 sec (9.6-11.0)
[2020-10-01 17:46] LABS: PHOSPHORUS 3.7 mg/dL (2.5-4.9)
[2020-10-01 17:49] LABS: CREATINE KINASE 797 IU/L (39-308)
[2020-10-01 17:54] LABS: AMYLASE 70 IU/L (25-115)
[2020-10-01] MEDS: DOPAMINE 800MG PREMIX (DOUBLE) 250 ML IV PRN ×2 (17:54→19:34)
[2020-10-01 17:58] LABS: HDL CHOLESTEROL 8 mg/dL (40-59)
[2020-10-01 17:59] LABS: B-HCG QUANTITATIVE < 1 mIU/mL (<3)
[2020-10-01 18:02] LABS: LDL CHOLESTEROL 9 mg/dL (5-100)
[2020-10-01] MEDS ORDERED: CEFEPIME 2,000 MG in DEXT 5% WATER 100 ML IV SCH (21:00)
[2020-10-01] MEDS ORDERED: CEFEPIME 500 MG in DEXTROSE 5% WATER 50 ML IV SCH (21:00)
[2020-10-01] MEDS ORDERED: POTASSIUM CHLORIDE INJ 40 MEQ in DEXT 5% WATER 250 ML IV SCH (21:00)
[2020-10-01] MEDS ORDERED: DEXT 5%/0.9% NACL 1,000 ML IV SCH (21:00)
[2020-10-02] VITALS: BP 27/15
[2020-10-02 00:10] VITALS: BP 47/19
[2020-10-02 00:30] VITALS: BP 101/54
[2020-10-02 00:33] VITALS: BP 73/51
[2020-10-02 00:35] LABS: CHLORIDE 90 mEq/L (98-107)
[2020-10-02 00:42] VITALS: BP 87/40
[2020-10-02 00:42] LABS: PHOSPHORUS 3.5 mg/dL (2.5-4.9)
[2020-10-02 00:43] LABS: CREATINE KINASE 668 IU/L (39-308)
[2020-10-02 00:45] VITALS: BP 50/28
[2020-10-02] MEDS ORDERED: SODIUM BICARBONATE 100 MEQ in DEXTROSE 5% WATER 1,000 ML IV SCH (01:00)
[2020-10-02] MEDS ORDERED: CALCIUM CHLORIDE 1GM/10ML SYR IV ONE (07:56)
[2020-10-02] MEDS ORDERED: ATROPINE SULFATE 1MG/10ML SYR ONE (07:56)
[2020-10-02] MEDS ORDERED: SODIUM BICARBONATE 8.4% 1 MEQ/ML 50ML SYR IV ONE (07:56)
[2020-10-02] MEDS ORDERED: EPINEPHRINE 0.1MG/ML (1:10,000) 10ML SYR ONE (07:56)
[2020-10-02] MEDS ORDERED: CHLORHEXIDINE GLUCONATE 4% EXTERNAL USE TOP SCH (09:00)
== END 2020-10-02 00:50 | DRG 720 ==
LOC: ER 19:47 → MICUSO 22:42 → 5EST 09-07 08:12 → MICUSO 09-07 11:58 → 7WST 09-07 12:29 → 6WST 09-09 17:13 → 6EST 09-11 14:49 → MICUNO 10-01 13:26
PROVIDERS: ADMIT Hospitalist; ATTEND Hospitalist
PROC: 02HV33Z Insertion of Infusion Device into Superior Vena Cava, Percutaneous Approach (ICD-10-PCS; 2020-09-24)
PROC: B518ZZA Fluoroscopy of Superior Vena Cava, Guidance (ICD-10-PCS; 2020-09-24)
PROC: B548ZZA Ultrasonography of Superior Vena Cava, Guidance (ICD-10-PCS; 2020-09-24)
PROC: 5A1935Z Respiratory Ventilation, Less than 24 Consecutive Hours (ICD-10-PCS; 2020-10-01)
PROC: 5A2204Z Restoration of Cardiac Rhythm, Single (ICD-10-PCS; 2020-10-01)
PROC: 0BH17EZ Insertion of Endotracheal Airway into Trachea, Via Natural or Artificial Opening (ICD-10-PCS; 2020-10-01)
PROC: 5A12012 Performance of Cardiac Output, Single, Manual (ICD-10-PCS; principal; 2020-10-02)
DX: A41.9 Sepsis, unspecified organism (principal); J96.01 Acute respiratory failure with hypoxia; E43 Unspecified severe protein-calorie malnutrition; J18.9 Pneumonia, unspecified organism; E87.2 Acidosis; D68.9 Coagulation defect, unspecified; E22.2 Syndrome of inappropriate secretion of antidiuretic hormone; D69.6 Thrombocytopenia, unspecified; I11.0 Hypertensive heart disease with heart failure; I50.9 Heart failure, unspecified; D64.9 Anemia, unspecified; Z20.822 Contact with and (suspected) exposure to COVID-19; I42.9 Cardiomyopathy, unspecified; F17.200 Nicotine dependence, unspecified, uncomplicated; F20.9 Schizophrenia, unspecified; E16.2 Hypoglycemia, unspecified; E87.5 Hyperkalemia; Z68.27 Body mass index [BMI] 27.0-27.9, adult; R74.01 Elevation of levels of liver transaminase levels
CPT/HCPCS: 36415; 36573; 36600; 71045; 71275; 80048; 80053; 80061; 80202; 80305; 81003; 82150; 82330; 82375; 82533; 82550; 82805; 82962; 83605; 83735; 83880; 84100; 84145; 84484; 84702; 85025; 85027; 86705; 86709; 86803; 87070; 87340; 87389; 93005; 93306; 94002; 94640; 97165; 99291; A6261; C1725; C1893; C9113; J0461; J0692; J0696; J1100; J1265; J1650; J1940; J2370; J2543; J2704; J3010; J3370; J3480; J3490; J7030; J7040; J7042; J7050; J7060; J7070; J7131; P9041; Q9967; U0003; U0005; A4315